=== PATIENT | female | born 1990 | race Hispanic/Latino ===

== ENCOUNTER 2018-09-25 18:24 | Emergency (ER) | payer OTHER, SELFPAY ==
[2018-09-25] MEDS ORDERED: HYDROcodone/Acetaminophen 10/325 mg Tablet ONE (19:39)
== END 2018-09-25 19:52 | disposition home or self-care (01) ==
LOC: ERS 18:24
DX: K03.81 Cracked tooth (principal)
CPT/HCPCS: 99282